=== PATIENT | female | born 1975 | race Asian ===

== ENCOUNTER 2018-06-26 20:51 | Emergency (ER) | payer BC ==
[~2018-06-26] VITALS: Ht 165.1 cm; Wt 58.5 kg
[2018-06-26 21:16] VITALS: Ht 165.1 cm; Wt 58.5 kg
[2018-06-27 00:47] VITALS: BP 120/41
== END 2018-06-27 00:47 | disposition home or self-care (01) ==
LOC: ED 20:51
DX: S61.230A Puncture wound without foreign body of right index finger without damage to nail, initial encounter (principal); W45.8XXA Other foreign body or object entering through skin, initial encounter; Y93.89 Activity, other specified; Y92.89 Other specified places as the place of occurrence of the external cause; Y99.8 Other external cause status
CPT/HCPCS: 90715; A4570